=== PATIENT | female | born 1995 | race Caucasian/White ===

== ENCOUNTER 2017-09-28 18:42 | Emergency (ER) | payer OTHER ==
[~2017-09-28] VITALS: Ht 167.6 cm; Wt 52.2 kg
[~2017-09-28 18:42] MED LIST: NITR100C62 PO; PNV1TABL69 PO
[2017-09-28 19:00] VITALS: BP 123/82
[2017-09-28] MEDS ORDERED: ONDANSETRON ODT 4 MG TAB.RAPDIS PO ONE (19:15)
[2017-09-28] MEDS ORDERED: HYDROcodone/APAP 5/325MG 1 TAB TABLET PO ONE (19:15)
[2017-09-28] MEDS ORDERED: HYDR-971 PO (19:15)
[2017-09-28] MEDS ORDERED: ONDA4TAB12 PO (19:15)
--- NOTE | 2017-09-28 19:15 | PHYS DOC ---
Past History Past Medical History: No Pertinent History Past Surgical History: No Surgical History Smoking: Cigarettes, Less than 1pk/day Alcohol Use: Occasionally Drug Use: None Adult General Chief Complaint Chief Complaint: WRIST PAIN HPI HPI 22-year-old otherwise healthy female presents with a left wrist injury. She states she fell down some steps today at [facility]. She denies any other injuries. She states she was treated with ibuprofen in a wrist splint at [facility]. She states pain hurts when she tries to move her wrist.[] Review of Systems Review of Systems Review of systems is as above otherwise unremarkable Allergies Allergies Allergies Coded Allergies Type Severity Reaction Last Updated Verified No Known Drug Allergies 09/18/13 No Physical Exam Physical Exam Constitutional: Well developed, well nourished, no acute distress, non-toxic appearance. [] HENT: Normocephalic, atraumatic, bilateral external ears normal, oropharynx moist, no oral exudates, nose normal. [] Eyes: PERRLA, EOMI, conjunctiva normal, no discharge. [] Neck: Normal range of motion, no tenderness, supple, no stridor. [] Cardiovascular:Heart rate regular rhythm, no murmur [] Lungs & Thorax: Bilateral breath sounds clear to auscultation [] Abdomen: Bowel sounds normal, soft, no tenderness, no masses, no pulsatile masses. [] Skin: Warm, dry, no erythema, no rash. [] Back: No tenderness, no CVA tenderness. [] Extremities: Left wrist is tender about no obvious deformity decreased range of motion secondary to pain moderate swelling. [] Neurologic: Alert and oriented X 3, normal motor function, normal sensory function, no focal deficits noted. [] Psychologic: Affect normal, judgement normal, mood normal. [] EKG EKG [] Radiology/Procedures Radiology/Procedures [] Impressions: Left wrist x-ray: Distal radius fracture nondisplaced Course & Med Decision Making Course & Med Decision Making Pertinent Labs and Imaging studies reviewed. (See chart for details) [ED course: Evaluation reveals a 22-year-old female with a nondisplaced left wrist fracture. She was placed in a very nice splenic [place]. I will keep her in this. With the splint in place she is neurovascularly intact and feels comfortable. She was given 2 hydrocodone and Zofran here. I will prescribe her with some [place] to take for pain as well as nausea medicine. I will have her follow-up with orthopedics next week.] Pete Disclaimer Pete Disclaimer This electronic medical record was generated, in whole or in part, using a voice recognition dictation system. Departure Departure: Impression: Primary Impression: Left wrist fracture Disposition: HOME, SELF-CARE Condition: STABLE Referrals: STANLEY HORTON MD (PCP) [facility] Patient Instructions: Wrist Fracture, Wrist Fracture with [facility] Additional Instructions: Follow with an orthopedic surgeon in the next 2-3 days. Keep your splint in place until that time. It is okay to briefly remove your splint while showering. Take pain medicine as needed. Return to the emergency department with any new or concerning symptoms Scripts Ondansetron (ONDANSETRON ODT) 4 Mg Tab.rapdis 1 TAB PO PRN Q6-8HRS for NAUSEA, #16 TAB Prov: BRIAN LOVE DO 09/28/17 Hydrocodone Bit/Acetaminophen (NORCO 5-325 TABLET) 1 Each Tablet 1-2 TAB PO Q4-6HRS for PAIN, #20 TAB Prov: BRIAN LOVE DO 09/28/17 Problem Qualifiers Primary Impression: Left wrist fracture Encounter type: initial encounter Fracture type: closed Qualified Codes: S62.102A - Fracture of unspecified carpal bone, left wrist, initial encounter for closed fracture BRIAN LOVE DO Sep 28, 2017 19:15
--- NOTE | 2017-09-29 00:48 | RAD ---
Indication: Fall TECHNIQUE: 3 views of the left wrist COMPARISON: None FINDINGS: There is subtle fracture through the ulnar styloid process, age indeterminate. Clinical correlation with focal tenderness. No soft tissue abnormality. IMPRESSION: As above. Electronically signed by: Jason Chapman DO (09/29/2017 12:45 AM) [facility]
== END 2017-09-28 19:30 | disposition home or self-care (01) ==
LOC: ER 18:42
DX: S62.102A Fracture of unspecified carpal bone, left wrist, initial encounter for closed fracture (principal); F17.210 Nicotine dependence, cigarettes, uncomplicated; W10.8XXA Fall (on) (from) other stairs and steps, initial encounter; Y93.89 Activity, other specified; Y99.8 Other external cause status; Y92.39 Other specified sports and athletic area as the place of occurrence of the external cause
CPT/HCPCS: 73110; 99284; Q0162; 29125

== ENCOUNTER 2018-11-16 18:41 | Observation (INO) | payer OTHER ==
[~2018-11-16] VITALS: Ht 320 cm; Wt 50.3 kg
[~2018-11-16 18:41] MED LIST changes: +HYDR-3165 PO; +IBUP800T19 PO; +ONDA4TAB12 PO; +PNV1TABL31 PO; -PNV1TABL69 PO
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
[2018-11-16] MEDS ORDERED: IV RINGERS SOLUTION,LACTATED 1,000 ML IV SCH (19:00)
[2018-11-16] MEDS ORDERED: MVI, ADULT NO.4 WITH VIT K 10 ML, FOLIC ACID SYRINGE for ER 1 MG, THIAMINE INJ 100 MG i... IV ONE ×4 (19:00)
[2018-11-16] MEDS ORDERED: TETANUS AND DIPHTHERIA TOX/PF 0.5 ML VIAL. VAX IM ONE (19:00)
[2018-11-16] MEDS ORDERED: diphenhydrAMINE 50 MG/ML VIAL IM ONE (19:15)
[2018-11-16] MEDS ORDERED: ZIPRASIDONE IM 20 MG VIAL. IM ONE (19:15)
[2018-11-16 19:17] LABS: BASO % 0 % (0-3); EOS # 0.1 x10^3/uL (0.0-0.7); EOS % 2 % (0-3); HEMATOCRIT 45.1 % (36.0-47.0); HEMOGLOBIN 15.4 g/dL (12.0-15.5); LYMPH # 3.8 x10^3/uL (1.0-4.8); LYMPH % 50 % (24-48); MEAN CORPUSCULAR HEMOGLOBIN 33 pg (25-35); MEAN CORPUSCULAR HGB CONC 34 g/dL (31-37); MEAN CORPUSCULAR VOLUME 96 fL (79-100); MONO # 0.3 x10^3/uL (0.0-1.1); MONO % 3 % (0-9); NEUT # 3.4 x10^3uL (1.8-7.7); NEUT % 45 % (31-73); PLATELET COUNT 313 x10^3/uL (140-400); RED BLOOD COUNT 4.72 x10^6/uL (3.50-5.40); RED CELL DISTRIBUTION WIDTH 13.2 % (11.5-14.5); WHITE BLOOD COUNT 7.6 x10^3/uL (4.0-11.0)
[2018-11-16] MEDS ORDERED: THIAMINE 200 MG/2 ML VIAL. IV ONE (19:27)
[2018-11-16] MEDS ORDERED: MVI, ADULT NO.4 WITH VIT K 10 ML VIAL IV ONE (19:28)
[2018-11-16] MEDS ORDERED: FOLIC ACID 5 MG/ML SYRINGE for ER IV ONE (19:28)
[2018-11-16] MEDS ORDERED: DIPHTH,PERTUSS(ACELL),TET TOX 0.5 ML DISP.SYRIN. VAX IM ONE (19:30)
[2018-11-16 19:47] LABS: ACETAMIN < 2.0 mcg/mL (10-30)
[2018-11-16 19:48] LABS: ETHANOL 343 mg/dL (0-10); SALIC 2.4 mg/dL (2.8-20.0)
[2018-11-16 19:49] LABS: TOTAL PROTEIN 7.7 g/dL (6.4-8.2)
[2018-11-16 19:50] LABS: ALBUMIN 4.3 g/dL (3.4-5.0); CALCIUM 8.9 mg/dL (8.5-10.1); CREATININE 0.9 mg/dL (0.6-1.0); DIRECT BILIRUBIN 0.1 mg/dL (0.0-0.2); GFR 77.6; POTASSIUM 3.6 mmol/L (3.5-5.1); TOTAL BILIRUBIN 0.4 mg/dL (0.2-1.0)
[2018-11-16 19:54] LABS: AMPHETAMINE/METHAMPHETAMINE NEG (NEG); BARBITURATES NEG (NEG); BENZODIAZEPINES NEG (NEG); COCAINE NEG (NEG); METHADONE NEG (NEG); OPIATES NEG (NEG); PHENCYCLIDINE NEG (NEG)
[2018-11-16 19:55] LABS: CANNABINOIDS POS (NEG)
[2018-11-16 20:16] LABS: BILIRUBIN,URINE NEG (NEG); CLARITY,URINE CLEAR; COLOR,URINE STRAW; GLUCOSE,URINE NEG (NEG); NITRITE,URINE NEG (NEG); UROBILINOGEN,URINE 0.2 mg/dL (0.2 mg/dL)
[2018-11-16 20:17] LABS: BACTERIA,URINE 0 /HPF (0-FEW); RBC,URINE 0 /HPF (0-2); SQUAMOUS EPITHELIAL CELL,UR OCC /LPF; WBC,URINE OCC /HPF (0-4)
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
[2018-11-16] MEDS ORDERED: IV RINGERS SOLUTION,LACTATED 1,000 ML IV ONE (20:30)
[2018-11-16] MEDS ORDERED: ONDANSETRON PF 4 MG/2 ML VIAL. IV PRN (21:15)
[2018-11-16 22:00] VITALS: BP 103/59
[2018-11-16] MEDS: IV RINGERS SOLUTION,LACTATED 1,000 ML IV SCH (23:20)
[2018-11-17 02:23] VITALS: BP 98/50
[2018-11-17] MEDS: IV RINGERS SOLUTION,LACTATED 1,000 ML IV SCH ×3 (04:26→12:15)
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
[2018-11-17 06:17] LABS: BASO % 1 % (0-3); EOS # 0.1 x10^3/uL (0.0-0.7); EOS % 1 % (0-3); HEMATOCRIT 40.5 % (36.0-47.0); HEMOGLOBIN 13.7 g/dL (12.0-15.5); LYMPH % 23 % (24-48); MEAN CORPUSCULAR HEMOGLOBIN 33 pg (25-35); MEAN CORPUSCULAR HGB CONC 34 g/dL (31-37); MEAN CORPUSCULAR VOLUME 97 fL (79-100); MONO # 0.3 x10^3/uL (0.0-1.1); MONO % 4 % (0-9); NEUT # 6.4 x10^3uL (1.8-7.7); NEUT % 72 % (31-73); PLATELET COUNT 239 x10^3/uL (140-400); RED BLOOD COUNT 4.17 x10^6/uL (3.50-5.40); RED CELL DISTRIBUTION WIDTH 13.5 % (11.5-14.5); WHITE BLOOD COUNT 8.8 x10^3/uL (4.0-11.0)
--- NOTE | 2018-11-17 06:29 | EKG ---
[address] [address] Test Date: 2018-11-16 Test Time: 19:10:07 Pat Name: ANNIKA LLOYD Department: Room: Gender: F Test Driver: [place] : 1995 Requested By: ANABELLA SNOW Order Number: [id number] Reading MD: Measurements Intervals [place] Rate: 114 P: 73 [place]: 126 QRS: 90 QRSD: 86 T: 41 QT: 330 QTc: 458 Interpretive Statements SINUS TACHYCARDIA NO SPECIFIC ECG ABNORMALITIES RI6.01 No previous ECG available for comparison
[2018-11-17 06:35] VITALS: BP 96/42
[2018-11-17 06:40] LABS: CALCIUM 8.5 mg/dL (8.5-10.1); CREATININE 0.8 mg/dL (0.6-1.0); GFR 88.9; POTASSIUM 3.5 mmol/L (3.5-5.1)
[2018-11-17] MEDS ORDERED: MVI, ADULT NO.4 WITH VIT K 10 ML, FOLIC ACID SYRINGE for ER 1 MG, THIAMINE INJ 100 MG i... IV SCH ×4 (09:00)
[2018-11-17 11:35] VITALS: BP 105/59
--- NOTE | 2018-11-17 12:14 | HP ---
ADMIT DATE: HISTORY OF PRESENT ILLNESS: The patient is a 23-year-old female patient who apparently presented to the Emergency Room with a history of fight with police in the course of arrest. Reportedly, she has passed out in her porch and neighbors called police out of concern for her toddler's safety. Police advice they arrange for the patient's sister to take custody of her children. She became combative and had to be arrested. During arrest, the patient hit her mouth and nose on banister and on arrival, she could not be reasoned with or encouraged to stop fighting. ____ restraints were stopped spitting on staff. She continued to attempt to bite and kick staff and eventually is needed chemical sedation in order to evaluate her. The patient appeared to be very intoxicated, hostile, threatening, aggressive, ____ in the out of control. She was extensively investigated in the Emergency Room and was eventually admitted to the hospital for close observation. PAST MEDICAL HISTORY: Unremarkable except for excessive alcoholism and tobacco use disorder. PAST SURGICAL HISTORY: Unremarkable. SOCIAL HISTORY: She apparently has 2 children. She smokes a cigarette this time one pack a day, abuses marijuana and also drinks alcohol heavily. ALLERGIES: She has no known drug allergies. MEDICATIONS: She is on Macrobid 100 mg twice a day, ibuprofen 800 mg 3 times a day, hydrocodone/APAP 5/325 one tablet every 4-6 hours, ondansetron 4 mg every 6-8 hours and plus tablet 1 tablet once a day. REVIEW OF SYSTEMS: As per history of present illness. PHYSICAL EXAMINATION: GENERAL: On arrival to the Emergency Room, the patient was very aggressive, hostile, but there was no pallor, jaundice, cyanosis, or thyromegaly. No jugular venous distension. No lower limb edema. VITAL SIGNS: Her heart rate was 110, blood pressure was 122/72, temperature was 98.3, respiratory rate was 16, and oxygen saturation was 98% on room air. HEAD, EYES, EARS, NOSE AND THROAT: Showed normocephalic, atraumatic. NECK: Supple. HEART: Showed normal first and second heart sounds. No gallop, rub or murmur. CHEST: Clear to auscultation. No crepitation or rhonchi. ABDOMEN: Scaphoid, soft, nontender. NEUROLOGIC: She is very intoxicated, discoordinated, very aggressive, uncooperative and agitated; however, she does move all extremities with the limits of police restraints. LABORATORY DATA: Her lab work on arrival showed white cell count of 7600, hemoglobin 15, hematocrit 45, MCV 96, and platelet count of 113,000 with a manual differential showed 45% polymorphs, 60% lymphocytes and 3% monocytes. Her chemistry showed a serum sodium of 145, potassium 3.6, chloride 110, bicarbonate 21, anion gap of 14, BUN 12, creatinine 0.9, estimated GFR was 77 mL per minute. Her glucose was 96, calcium was 8.9, magnesium 2. Total bilirubin, AST, ALT, alkaline phosphatase were normal. Total protein was 7.7, albumin was 4.3. Her prothrombin time was 9.4, INR of 0.9, aPTT was 24. Urinalysis showed that the urine was essentially unremarkable. The urine test was negative and tox screen was positive for cannabinoids and blood alcohol level was 343. Urine toxicology was negative for opiates, methadone, barbiturates, phencyclidine, amphetamine, benzodiazepine and cocaine. CT scan of the head showed that she has mild motion artifact, but no acute finding. CT facial bones, moderate motion artifact but no acute finding. CT of the cervical spine, mild motion artifact, no acute finding. Her chest x-ray showed the cardiomediastinal silhouette is normal. Lungs are clear. There is no pneumothorax, no pleural effusion appreciated, no acute bony abnormalities. PLAN: The patient was continued on IV fluid with banana bag as well as lorazepam and ondansetron. We will repeat all her lab work tomorrow and decide the further management accordingly. JAROD MALDONADO MD DR: VAN/ed JOB#: [id number] / [id number]
--- NOTE | 2018-11-17 20:50 | DS ---
DATE OF DISCHARGE: 11/17/2018 HISTORY OF PRESENT ILLNESS: The patient is a 23-year-old female patient who was admitted yesterday with a history of fight with the police in the course of arrest. She reportedly has passed out in her porch and neighbors called the police out of concern for her toddler's safety and police advised her that they arranged for the patient's sister to take custody of her children. The patient became combative and had to be arrested. During the arrest, the patient hit her mouth and nose on the banister, on arrival, she could not see a reason why she was fighting, police restraints and stopped and was spitting on staff. She continued to attempt to bite and kick staff; however, eventually she was chemically sedated and admitted for observation. PHYSICAL EXAMINATION: GENERAL: When I saw her this morning, she was resting slightly propped up in bed, in no apparent distress. She is awake, alert, have no recollection of all the events of the night before and has been steady on her feet, has been up to the bathroom and had shower and also ate her breakfast without problems and therefore, a decision was made to discharge her home. When I saw her this morning, she looked well and was clearly in no apparent respiratory distress. No pallor, jaundice, cyanosis, or thyromegaly. No jugular venous distension. No limb edema. VITAL SIGNS: Her heart rate was 96, blood pressure 105/59, temperature was 97.6, respiratory rate was 18 and oxygen saturation was 96%. HEAD, EYES, EARS, NOSE AND THROAT: Showed normocephalic, atraumatic. She has slightly swollen nose and lip. NECK: Supple. HEART: Showed normal first and second heart sounds. No gallop, rub or murmur. CHEST: Clear to auscultation. No crepitation or rhonchi. ABDOMEN: Distended, soft, nontender. No guarding or rigidity. No organomegaly. All hernial orifice intact. Bowel sounds normal. NEUROLOGIC: She is awake, alert, responding appropriately. All her cranial nerves intact. She moves extremities without difficulty. She ambulates without assistance or assistive devices. Her intake over the last 24 hours was 5000, output was 700. LABORATORY DATA: Her lab work this morning showed a white cell count of 8800, hemoglobin was 13.7, hematocrit 40, MCV 97 and platelet count 139,000 with normal manual differential. Her chemistry showed a serum sodium 147, potassium 3.5, chloride 110, bicarbonate 24, anion gap of 13, BUN 10, creatinine 0.8, estimated GFR was 88 mL per minute. Her glucose was 63, calcium was 8.5. Her prothrombin time, INR and aPTT were normal. Urinalysis was essentially unremarkable. Her test was negative. Toxic screen showed that her blood alcohol level is down to 99 mg/dL and was positive also for cannabinoid. FINAL DISCHARGE DIAGNOSES: Alcohol intoxication, tobacco and marijuana abuse, nasal and lip contusion, mild epistaxis, resolved and closed head injury. JAROD MALDONADO MD DR: VAN/ed JOB#: [id number] / [id number]
== END 2018-11-17 15:00 | disposition home or self-care (01) ==
LOC: EEVIPCON 18:41 → ER 18:41 → INTOOBSV 21:00 → ICU 21:00
PROVIDERS: ADMIT Hospitalist; ATTEND Hospitalist
DX: F10.129 Alcohol abuse with intoxication, unspecified (principal); F17.210 Nicotine dependence, cigarettes, uncomplicated; F12.10 Cannabis abuse, uncomplicated; S09.90XA Unspecified injury of head, initial encounter; X58.XXXA Exposure to other specified factors, initial encounter; R04.0 Epistaxis; S00.531A Contusion of lip, initial encounter; S00.33XA Contusion of nose, initial encounter; Y93.89 Activity, other specified; Y92.89 Other specified places as the place of occurrence of the external cause; Y99.8 Other external cause status; Z23 Encounter for immunization
CPT/HCPCS: 36415; 70450; 70486; 71045; 72125; 80048; 80076; 80307; 80329; 81001; 81025; 82550; 83735; 83880; 84443; 84484; 85025; 85610; 85730; 87641; 90471; 90715; 93005; 96365; 96372; 99284; G0378; G0480; J1200; J2060; J3486; J7120; G0379; 82003